=== PATIENT | female | born 1935 | race Caucasian/White ===

== ENCOUNTER 2017-11-17 08:12 | Emergency (ER) | payer MEDICARE, OTHER ==
[~2017-11-17] VITALS: Ht 157.5 cm; Wt 52.3 kg
[2017-11-17 08:15] VITALS: Ht 157.5 cm; Wt 52.3 kg
[2017-11-17] MEDS ORDERED: PACERONE100 MG PO (08:16)
[2017-11-17] MEDS ORDERED: ASPIRIN325 MG (08:17)
[2017-11-17] MEDS ORDERED: VALIUM5 MG (08:17)
[2017-11-17] MEDS ORDERED: OS-CAL500 MG (08:17)
[2017-11-17] MEDS ORDERED: MELATONIN 3 MG1 TAB (08:17)
[2017-11-17 09:08] LABS: BASOPHILS 0.3 % (0-2); EOSINOPHILS 1.7 % (0-7); HEMOGLOBIN 13.6 g/dL (12-16); IMMATURE GRANULOCYTES 0.5 % (0-5); LYMPHOCYTES 22.5 % (15-50); MCH 32.2 pg (26.0-34.0); MCHC 33.2 g/dL (31.0-37.0); MCV 96.9 fL (80.0-100.0); MEAN PLATELET VOLUME 9.4 fL (7.4-10.4); MONOCYTES 8.7 % (2-11); NEUTROPHILS 66.3 % (40-80); PLATELET COUNT 212 10x3/uL (130-400); RBC 4.23 10x6/uL (4.00-5.40); WBC 7.6 10x3/uL (4.8-10.8)
[2017-11-17 09:23] LABS: ALBUMIN 3.4 g/dL (3.4-5.0); ALKALINE PHOSPHATASE 92 U/L (46-116); ALT (SGPT) 29 U/L (10-68); BILIRUBIN - TOTAL 0.46 mg/dL (0.2-1.3); CALC OSMOLALITY 283 mosm/kg (275-300); CALCIUM 8.8 mg/dL (8.5-10.1); CARBON DIOXIDE 27.9 mmol/L (21.0-32.0); CHLORIDE - SERUM 104 mmol/L (98-107); CREATININE - SERUM 0.8 mg/dL (0.6-1.3); GLUCOSE 95 mg/dL (74-106); PROTEIN - SERUM 6.8 g/dL (6.4-8.2); SODIUM 142 mmol/L (136-145); UREA NITROGEN 15 mg/dL (7-18); eGFR NON AFRICAN AMERICAN 73 mL/min (90-120)
[2017-11-17 09:34] LABS: CREATINE KINASE 63 UL (21-215)
[2017-11-17 09:35] LABS: TROPONIN-I < 0.017 ng/mL (0.000-0.060)
[2017-11-17 09:54] LABS: CKMB 0.7 U/L (0.0-3.6)
[2017-11-17] MEDS ORDERED: CATAPRES0.1 MG PO (10:21)
[2017-11-17 10:35] VITALS: BP 202/98
[2017-11-18] MEDS ORDERED: BAYER CHEWABLE81 MG PO (16:31)
== END 2017-11-17 10:37 | disposition other institution (70) ==
LOC: D.ER 08:12
PROVIDERS: Family Medicine
DX: R42 Dizziness and giddiness (principal); I10 Essential (primary) hypertension; Z86.73 Personal history of transient ischemic attack (TIA), and cerebral infarction without residual deficits

== ENCOUNTER 2017-11-18 16:08 | Emergency (ER) | payer MEDICARE, OTHER ==
[~2017-11-18] VITALS: Ht 157.5 cm; Wt 43.2 kg
[~2017-11-18 16:08] MED LIST: ASPIRIN325 MG; CATAPRES0.1 MG PO; MELATONIN 3 MG1 TAB; OS-CAL500 MG; PACERONE100 MG PO; VALIUM5 MG
[2017-11-18 16:16] VITALS: Ht 157.5 cm; Wt 43.2 kg
[2017-11-18] MEDS ORDERED: BAYER CHEWABLE81 MG PO (16:31)
[2017-11-18 16:54] LABS: BASOPHILS 0.1 % (0-2); EOSINOPHILS 1.3 % (0-7); HEMATOCRIT 38.3 % (36.0-48.0); HEMOGLOBIN 12.7 g/dL (12-16); IMMATURE GRANULOCYTES 0.6 % (0-5); LYMPHOCYTES 25.7 % (15-50); MCH 32.2 pg (26.0-34.0); MCHC 33.2 g/dL (31.0-37.0); MCV 97.2 fL (80.0-100.0); MEAN PLATELET VOLUME 9.5 fL (7.4-10.4); MONOCYTES 8.7 % (2-11); NEUTROPHILS 63.6 % (40-80); PLATELET COUNT 226 10x3/uL (130-400); RBC 3.94 10x6/uL (4.00-5.40); RDW 13.7 % (11.5-14.5)
[2017-11-18 16:55] LABS: WBC 10.5 10x3/uL (4.8-10.8)
[2017-11-18 17:24] LABS: ALBUMIN 3.3 g/dL (3.4-5.0); ALKALINE PHOSPHATASE 93 U/L (46-116); ALT (SGPT) 26 U/L (10-68); BILIRUBIN - TOTAL 0.26 mg/dL (0.2-1.3); CALC OSMOLALITY 279 mosm/kg (275-300); CALCIUM 8.7 mg/dL (8.5-10.1); CHLORIDE - SERUM 103 mmol/L (98-107); CREATININE - SERUM 0.9 mg/dL (0.6-1.3); GLUCOSE 83 mg/dL (74-106); POTASSIUM - SERUM 3.9 mmol/L (3.5-5.1); PROTEIN - SERUM 6.6 g/dL (6.4-8.2); SODIUM 140 mmol/L (136-145); UREA NITROGEN 19 mg/dL (7-18); eGFR NON AFRICAN AMERICAN 64 mL/min (90-120)
[2017-11-18 17:29] LABS: APTT 24.9 SECONDS (22.8-39.4); INR 1.01 (0.85-1.17); PROTIME 12.9 SECONDS (11.6-15.0)
[2017-11-18 17:31] LABS: D-DIMER-QUANTITATIVE < 0.27 ug/mLFEU (0.20-0.54)
[2017-11-18 17:36] LABS: CKMB 0.7 U/L (0.0-3.6); CREATINE KINASE 58 UL (21-215); PRO BNP 228 pg/mL (0-450)
[2017-11-18 17:46] LABS: TROPONIN-I < 0.017 ng/mL (0.000-0.060)
[2017-11-18 20:00] VITALS: BP 147/63
== END 2017-11-18 21:32 | disposition home or self-care (01) ==
LOC: D.ER 16:08
PROVIDERS: Family Medicine
DX: R07.9 Chest pain, unspecified (principal); I48.91 Unspecified atrial fibrillation; Z86.73 Personal history of transient ischemic attack (TIA), and cerebral infarction without residual deficits

== ENCOUNTER 2019-07-15 15:07 | Emergency (ER) | payer MEDICARE, OTHER ==
[~2019-07-15] VITALS: Ht 157.5 cm; Wt 50.0 kg
[~2019-07-15 15:07] MED LIST changes: +BAYER CHEWABLE81 MG PO
[2019-07-15 15:12] VITALS: Ht 157.5 cm; Wt 50.0 kg
[2019-07-15] MEDS ORDERED: VITAMIN D1000 UNI1 PO (15:23)
[2019-07-15] MEDS ORDERED: LISINOPRIL20 MG PO (15:23)
[2019-07-15] MEDS ORDERED: VITAMIN B-121000 MCG PO (15:24)
[2019-07-15] MEDS ORDERED: CATAPRES0.1 MG PO (15:25)
[2019-07-15] MEDS ORDERED: ULTRAM50 MG PO (15:26)
[2019-07-15 16:09] LABS: BASOPHILS 0.2 % (0-2); EOSINOPHILS 1.1 % (0-7); HEMATOCRIT 40.7 % (36.0-48.0); IMMATURE GRANULOCYTES 0.2 % (0-5); MCHC 31.9 g/dL (31.0-37.0); MCV 103.3 fL (80.0-100.0); MEAN PLATELET VOLUME 9.2 fL (7.4-10.4); NEUTROPHILS 68.5 % (40-80); PLATELET COUNT 256 10x3/uL (130-400); RBC 3.94 10x6/uL (4.00-5.40); RDW 13.5 % (11.5-14.5); WBC 8.6 10x3/uL (4.8-10.8)
[2019-07-15 16:30] LABS: ANION GAP 14.2 mmol/L (8-16); CALCIUM 8.6 mg/dL (8.5-10.1); CARBON DIOXIDE 24.7 mmol/L (21.0-32.0); CREATININE - SERUM 0.9 mg/dL (0.6-1.3); POTASSIUM - SERUM 3.9 mmol/L (3.5-5.1)
[2019-07-15 16:35] LABS: ALBUMIN 3.6 g/dL (3.4-5.0); BILIRUBIN - TOTAL 0.26 mg/dL (0.2-1.3); PROTEIN - SERUM 6.5 g/dL (6.4-8.2)
[2019-07-15 17:45] LABS: SPECIFIC GRAVITY 1.015 (1.005-1.020)
[2019-07-15 17:46] LABS: BACTERIA FEW /hpf (NEGATIVE); BILIRUBIN NEGATIVE (NEGATIVE); EPITHELIAL CELLS 0-5 /hpf (0-5); GLUCOSE NEGATIVE (NEGATIVE); KETONE NEGATIVE (NEGATIVE); NITRITE NEGATIVE (NEGATIVE); RED CELLS - URINE OCC /hpf (0-5); UROBILINOGEN NORMAL (NORMAL); WHITE CELLS - URINE 0-5 /hpf (NEGATIVE)
[2019-07-15] MEDS ORDERED: KEFLEX500 MG PO (17:48)
[2019-07-15 18:00] VITALS: BP 173/66
== END 2019-07-15 18:01 | disposition home or self-care (01) ==
LOC: D.ER 15:07
PROVIDERS: Family Medicine
DX: R51 Headache (principal); I10 Essential (primary) hypertension; N39.0 Urinary tract infection, site not specified; W19.XXXA Unspecified fall, initial encounter; Y93.9 Activity, unspecified; Y92.9 Unspecified place or not applicable; I48.91 Unspecified atrial fibrillation; Z86.73 Personal history of transient ischemic attack (TIA), and cerebral infarction without residual deficits

== ENCOUNTER 2019-07-23 19:32 | Emergency (ER) | payer MEDICARE, OTHER ==
[~2019-07-23] VITALS: Ht 157.5 cm; Wt 54.5 kg
[~2019-07-23 19:32] MED LIST changes: +KEFLEX500 MG PO; +LISINOPRIL20 MG PO; +ULTRAM50 MG PO; +VITAMIN B-121000 MCG PO; +VITAMIN D1000 UNI1 PO
[2019-07-23 19:34] VITALS: Ht 157.5 cm; Wt 54.5 kg
[2019-07-23 19:47] LABS: BASOPHILS 0.1 % (0-2); EOSINOPHILS 1.4 % (0-7); HEMATOCRIT 42.4 % (36.0-48.0); HEMOGLOBIN 13.8 g/dL (12-16); IMMATURE GRANULOCYTES 0.5 % (0-5); LYMPHOCYTES 28.3 % (15-50); MCHC 32.5 g/dL (31.0-37.0); MCV 101.4 fL (80.0-100.0); MEAN PLATELET VOLUME 10.8 fL (7.4-10.4); MONOCYTES 9.2 % (2-11); NEUTROPHILS 60.5 % (40-80); PLATELET COUNT 267 10x3/uL (130-400); RBC 4.18 10x6/uL (4.00-5.40); RDW 13.7 % (11.5-14.5); WBC 8.5 10x3/uL (4.8-10.8)
[2019-07-23 20:00] LABS: ANION GAP 16.9 mmol/L (8-16); CALCIUM 9.1 mg/dL (8.5-10.1); CARBON DIOXIDE 20.9 mmol/L (21.0-32.0); CREATININE - SERUM 0.8 mg/dL (0.6-1.3); POTASSIUM - SERUM 4.8 mmol/L (3.5-5.1)
[2019-07-23 20:06] LABS: BILIRUBIN - TOTAL 0.43 mg/dL (0.2-1.3); PROTEIN - SERUM 7.7 g/dL (6.4-8.2)
[2019-07-23] MEDS ORDERED: LISINOPRIL40 MG PO (20:13)
[2019-07-23 21:53] VITALS: BP 135/52
== END 2019-07-23 21:53 | disposition home or self-care (01) ==
LOC: D.ER 19:32
PROVIDERS: Family Medicine
DX: I10 Essential (primary) hypertension (principal); Z86.73 Personal history of transient ischemic attack (TIA), and cerebral infarction without residual deficits; I48.91 Unspecified atrial fibrillation

== ENCOUNTER 2019-09-08 17:17 | Emergency (ER) | payer MEDICARE, OTHER ==
[~2019-09-08] VITALS: Ht 157.5 cm; Wt 54.5 kg
[~2019-09-08 17:17] MED LIST changes: +LISINOPRIL40 MG PO
[2019-09-08 17:27] VITALS: Ht 157.5 cm; Wt 54.5 kg
[2019-09-08 19:40] LABS: BASOPHILS 0.2 % (0-2); EOSINOPHILS 1.1 % (0-7); HEMATOCRIT 42.8 % (36.0-48.0); HEMOGLOBIN 13.8 g/dL (12-16); IMMATURE GRANULOCYTES 0.4 % (0-5); LYMPHOCYTES 24.8 % (15-50); MCH 32.6 pg (26.0-34.0); MCHC 32.2 g/dL (31.0-37.0); MCV 101.2 fL (80.0-100.0); MEAN PLATELET VOLUME 9.3 fL (7.4-10.4); MONOCYTES 8.5 % (2-11); PLATELET COUNT 283 10x3/uL (130-400); RBC 4.23 10x6/uL (4.00-5.40); RDW 13.2 % (11.5-14.5); WBC 9.5 10x3/uL (4.8-10.8)
[2019-09-08 20:00] LABS: CALC OSMOLALITY 270 mosm/kg (275-300); CALCIUM 9.1 mg/dL (8.5-10.1); CARBON DIOXIDE 28.1 mmol/L (21.0-32.0); CHLORIDE - SERUM 100 mmol/L (98-107); CREATININE - SERUM 0.9 mg/dL (0.6-1.3); GLUCOSE 93 mg/dL (74-106); POTASSIUM - SERUM 3.8 mmol/L (3.5-5.1); SODIUM 135 mmol/L (136-145); UREA NITROGEN 14 mg/dL (7-18); eGFR NON AFRICAN AMERICAN 63 mL/min (90-120)
[2019-09-08 20:09] LABS: ALBUMIN 3.9 g/dL (3.4-5.0); ALKALINE PHOSPHATASE 108 U/L (30-120); ALT (SGPT) 25 U/L (10-68); AMYLASE - SERUM 40 U/L (25-115); BILIRUBIN - TOTAL 0.42 mg/dL (0.2-1.3); LIPASE 54 U/L (73-393); PROTEIN - SERUM 7.4 g/dL (6.4-8.2)
[2019-09-08 20:14] LABS: TROPONIN-I < 0.017 ng/mL (0.000-0.060)
[2019-09-08 20:31] LABS: BILIRUBIN NEGATIVE (NEGATIVE); GLUCOSE NEGATIVE (NEGATIVE); KETONE NEGATIVE (NEGATIVE); NITRITE NEGATIVE (NEGATIVE); UROBILINOGEN NORMAL (NORMAL)
[2019-09-08 20:32] LABS: RED CELLS - URINE OCC /hpf (0-5); WHITE CELLS - URINE 0-5 /hpf (NEGATIVE)
[2019-09-08] MEDS ORDERED: BENTYL10 MG PO (21:55)
[2019-09-08 22:16] VITALS: BP 129/89
== END 2019-09-08 22:16 | disposition home or self-care (01) ==
LOC: D.ER 17:17
PROVIDERS: Family Medicine
DX: R10.30 Lower abdominal pain, unspecified (principal); K52.9 Noninfective gastroenteritis and colitis, unspecified; Z86.73 Personal history of transient ischemic attack (TIA), and cerebral infarction without residual deficits; I48.91 Unspecified atrial fibrillation; F03.90 Unspecified dementia, unspecified severity, without behavioral disturbance, psychotic disturbance, mood disturbance, and anxiety